=== PATIENT | female | born 1980 | race Caucasian/White ===

== ENCOUNTER 2018-11-16 12:04 | Emergency (ER) | payer OTHER, MEDICAID ==
[2018-11-16] MEDS: ONDANSETRON 4 MG INJ IV (13:15)
[2018-11-16] MEDS: morphine 2 MG INJ IV (13:15)
[2018-11-16] MEDS: SOD CHLORIDE 0.9% 500 ML IV (13:16)
[2018-11-16 13:20] LABS: URINE PH (Dip) POC 8.5 (5.0-8.5)
[2018-11-16 13:20] LABS: URINE BLOOD (Dip) POC Trace-intact (NEGATIVE); URINE GLUCOSE (Dip) POC Negative (NEGATIVE); URINE KETONES (Dip) POC 4+ (NEGATIVE); URINE LEUKOCYTE EST (Dip) POC Negative (NEGATIVE); URINE NITRITE (Dip) POC Negative (NEGATIVE); URINE TOTAL PROTEIN POC 3+ (NEGATIVE)
[2018-11-16] MEDS: KETOROLAC 15 MG INJ IV (13:33)
[2018-11-16] MEDS: ACETAMINOPHEN 325 MG TAB PO (14:34)
== END 2018-11-16 14:54 | disposition home or self-care (01) ==
LOC: FTE 14:54
DX: G43.909 Migraine, unspecified, not intractable, without status migrainosus (principal); R40.2122 Coma scale, eyes open, to pain, at arrival to emergency department; R40.2252 Coma scale, best verbal response, oriented, at arrival to emergency department; R40.2362 Coma scale, best motor response, obeys commands, at arrival to emergency department
CPT/HCPCS: 81003; 81025; 96361; 96374; 96375; 99284-25